=== PATIENT | male | born 1945 | race Caucasian/White ===

== ENCOUNTER → 2023-05-28 13:54 | Outpatient (REF) | payer MEDICARE, SELFPAY | LOC: DHCBC HW 13:54 | PROVIDERS: ATTENDING PHYSICIAN Internal Medicine; FAMILY PHYSICIAN Internal Medicine | DX: I10 Essential (primary) hypertension (principal); I35.1 Nonrheumatic aortic (valve) insufficiency; I49.1 Atrial premature depolarization; I77.810 Thoracic aortic ectasia | CPT/HCPCS: 93306 ==

== ENCOUNTER → 2023-09-18 11:45 | Outpatient (REF) | payer MEDICARE, SELFPAY | LOC: PAVMRI 11:45 | PROVIDERS: ATTENDING PHYSICIAN Psychiatry & Neurology Neurology; FAMILY PHYSICIAN Internal Medicine | DX: R41.3 Other amnesia (principal) | CPT/HCPCS: 70544; 70553; A9575 ==

== ENCOUNTER → 2024-03-27 14:19 | Outpatient (REF) | payer MEDICARE, SELFPAY | LOC: RAD 14:19 | PROVIDERS: ATTENDING PHYSICIAN Nurse Practitioner Adult Health | DX: L02.214 Cutaneous abscess of groin (principal) | CPT/HCPCS: 76882 ==